=== PATIENT | male | born 1930 | race Caucasian/White ===

== ENCOUNTER 2017-11-29 12:25 | Inpatient (IN) | payer MEDICARE ==
[~2017-11-29] VITALS: Ht 175.3 cm; Wt 93.0 kg
[~2017-11-29 12:25] MED LIST: AMIO200T57 PO; APIX2.5T PO; COU1T PO; FISH12002 PO; FLO0.4C PO; FURO-150 PO; LISI-600 PO; MULT-1085 PO; ZOC40T PO
[2017-11-29] MEDS ORDERED: HYDROcodone/acetaminophen 10/325mg tab PO ONE (12:45)
[2017-11-29] MEDS ORDERED: HYDROmorphone inj. 0.5 MG/0.5 ML DISP.SYRIN IV ONE (13:25)
[2017-11-29 14:38] LABS: BASOPHILS % (AUTO) 0.3 % (0-1); EOSINOPHILS # (AUTO) 0.3 X10'3 (0-0.9); EOSINOPHILS % (AUTO) 4.7 % (0-6); HEMATOCRIT 35.8 % (42.0-52.0); HEMOGLOBIN 12.4 g/dl (14.0-17.9); LYMPHOCYTES # (AUTO) 0.6 X10'3 (1.1-4.8); LYMPHOCYTES % (AUTO) 8.3 % (21-51); MEAN CORPUSCULAR HEMOGLOBIN 33.2 PG (27.0-31.0); MEAN CORPUSCULAR HGB CONC 34.6 % (33.0-36.5); MEAN PLATELET VOLUME 8.1 FL (7.4-10.4); MONOCYTES # (AUTO) 0.6 X10'3 (0-0.9); MONOCYTES % (AUTO) 7.6 % (2-12); NEUTROPHILS # (AUTO) 5.7 X10'3 (1.8-7.7); NEUTROPHILS % (AUTO) 79.1 % (42-75); PLATELET COUNT 159 X10'3 (140-440); RED BLOOD COUNT 3.73 X10'6 (4.70-6.10); RED CELL DISTRIBUTION WIDTH 15.1 % (11.5-14.5); WHITE BLOOD COUNT 7.3 X10'3 (4.5-11.0)
[2017-11-29 14:39] LABS: ALANINE AMINOTRANSFERASE 33 U/L (12-78); ALBUMIN 3.2 G/DL (3.4-5.0); ALBUMIN/GLOBULIN RATIO 1.1 (1.1-1.5); ALKALINE PHOSPHATASE 161 IU/L (46-116); ANION GAP 11 (8-16); ASPARTATE AMINO TRANSFERASE 18 U/L (10-37); BILIRUBIN,TOTAL 0.6 MG/DL (0.1-1.0); BLOOD UREA NITROGEN 44 MG/DL (7-18); BUN/CREATININE RATIO 25.9 (5.4-32.0); CALCIUM 8.6 MG/DL (8.5-10.1); CHLORIDE 106 MMOL/L (99-107); GLUCOSE 91 MG/DL (70-104); SODIUM 142 MMOL/L (135-145); TOTAL CARBON DIOXIDE 25.3 MMOL/L (24-32); TOTAL PROTEIN 6.1 G/DL (6.4-8.2); eGFR 38 ML/MIN
[2017-11-29 16:31] LABS: CLARITY,URINE CLEAR (Clear); COLOR,URINE YELLOW (Yellow); GLUCOSE, URINE NEGATIVE (Neg); KETONES,URINE NEGATIVE (Neg); LEUKOCYTE ESTERASE ,URINE TRACE (Neg); NITRITES, URINE NEGATIVE (Neg); OCCULT BLOOD,URINE NEGATIVE (Neg); PROTEIN,URINE TRACE mg/dl (Neg); UROBILINOGEN,URINE 0.2 E.U/dL (0.2-1.0)
[2017-11-29 16:33] LABS: UA COLLECTION TYPE CLN CATCH MIDSTREAM
[2017-11-29 16:40] LABS: BACTERIA,URINE NONE SEEN /HPF (Neg); RBC,URINE NONE SEEN /HPF (0-2); SQUAMOUS EPITHELIAL CELL,UR NONE SEEN /LPF (FEW); WBC,URINE 0-4 /HPF (0-4)
[2017-11-29] MEDS ORDERED: mag hydrox/Alum hydrox/simeth 30ml oral suspension PO PRN (17:15)
[2017-11-29] MEDS ORDERED: HYDROmorphone 1 mg/ml syringe IV PRN (17:15)
[2017-11-29] MEDS ORDERED: ondansetron/PF 4mg/2ml inj IV PRN (17:15)
[2017-11-29] MEDS ORDERED: magnesium hydroxide 30ml (MOM) UD suspension PO PRN (17:15)
[2017-11-29] MEDS ORDERED: HYDROcodone/acetaminophen 10/325mg tab PO PRN (17:15)
[2017-11-29] MEDS ORDERED: acetaminophen 325mg tablet PO PRN (17:15)
[2017-11-29] MEDS ORDERED: HYDROcodone/acetaminophen 5mg/325mg tablet PO PRN (17:15)
[2017-11-29 18:19] VITALS: BP 128/82
[2017-11-29] MEDS ORDERED: heparin, porcine 5000 units/ml vial SQ SCH (20:00)
[2017-11-29] MEDS: lisinopril 20mg tablet PO SCH (21:08)
[2017-11-29] MEDS: atorvastatin 20mg tablet PO SCH (21:08)
[2017-11-29] MEDS: normal saline 1000ml 1,000 ML IV SCH (21:16)
[2017-11-29] MEDS: apixaban 2.5mg tablet PO SCH (21:17)
[2017-11-29 22:00] VITALS: BP 120/73
[2017-11-30] MEDS: normal saline 1000ml 1,000 ML IV SCH ×3 (05:07→19:26)
[2017-11-30 06:00] VITALS: BP 106/67
[2017-11-30 06:35] LABS: BASOPHILS % (AUTO) 0.9 % (0-1); EOSINOPHILS # (AUTO) 0.3 X10'3 (0-0.9); EOSINOPHILS % (AUTO) 5.2 % (0-6); HEMATOCRIT 33.3 % (42.0-52.0); HEMOGLOBIN 11.7 g/dl (14.0-17.9); LYMPHOCYTES # (AUTO) 0.4 X10'3 (1.1-4.8); LYMPHOCYTES % (AUTO) 7.2 % (21-51); MEAN CORPUSCULAR HEMOGLOBIN 33.2 PG (27.0-31.0); MEAN CORPUSCULAR HGB CONC 35.2 % (33.0-36.5); MEAN CORPUSCULAR VOLUME 94.3 FL (78-98); MEAN PLATELET VOLUME 7.7 FL (7.4-10.4); MONOCYTES # (AUTO) 0.5 X10'3 (0-0.9); MONOCYTES % (AUTO) 8.5 % (2-12); NEUTROPHILS # (AUTO) 4.5 X10'3 (1.8-7.7); NEUTROPHILS % (AUTO) 78.2 % (42-75); PLATELET COUNT 147 X10'3 (140-440); RED BLOOD COUNT 3.53 X10'6 (4.70-6.10); RED CELL DISTRIBUTION WIDTH 15.3 % (11.5-14.5); WHITE BLOOD COUNT 5.7 X10'3 (4.5-11.0)
[2017-11-30 06:37] LABS: ALBUMIN 2.9 G/DL (3.4-5.0); ANION GAP 6 (8-16); BLOOD UREA NITROGEN 38 MG/DL (7-18); BUN/CREATININE RATIO 22.4 (5.4-32.0); CALCIUM 8.5 MG/DL (8.5-10.1); CHLORIDE 109 MMOL/L (99-107); GLUCOSE 100 MG/DL (70-104); POTASSIUM 4.5 MMOL/L (3.5-5.1); SODIUM 143 MMOL/L (135-145); TOTAL CARBON DIOXIDE 28.5 MMOL/L (24-32); eGFR 38 ML/MIN
[2017-11-30] MEDS: lisinopril 20mg tablet PO SCH (07:12)
[2017-11-30] MEDS: tamsulosin 0.4mg capsule PO SCH (07:41)
[2017-11-30] MEDS: OMEGA-3/DHA/EPA/FISH OIL 1 EACH CAPSULE.DR PO SCH (07:42)
[2017-11-30] MEDS: multivitamins, therapeutics tablet PO SCH (07:42)
[2017-11-30] MEDS: furosemide 20MG tablet PO SCH (07:42)
[2017-11-30] MEDS: amiodarone 200mg tablet PO SCH (07:42)
[2017-11-30] MEDS: apixaban 2.5mg tablet PO SCH (07:42)
[2017-11-30 10:00] VITALS: BP 101/65
[2017-11-30] MEDS ORDERED: LISI10TA4 PO (10:09)
[2017-11-30] MEDS ORDERED: RIVA15TA PO (10:15)
[2017-11-30 18:34] VITALS: BP 104/64
[2017-11-30 20:50] VITALS: BP 85/62
[2017-11-30] MEDS: lisinopril 10 MG tablet PO SCH (21:00)
[2017-11-30] MEDS: atorvastatin 20mg tablet PO SCH (21:25)
[2017-11-30] MEDS: rivaroxaban 15mg tablet PO SCH (21:26)
[2017-12-01 02:21] VITALS: BP 122/72
[2017-12-01] MEDS: normal saline 1000ml 1,000 ML IV SCH (05:31)
[2017-12-01 06:00] VITALS: BP 123/77
[2017-12-01 06:38] LABS: BASOPHILS % (AUTO) 0.5 % (0-1); EOSINOPHILS # (AUTO) 0.3 X10'3 (0-0.9); EOSINOPHILS % (AUTO) 4.2 % (0-6); HEMATOCRIT 34.4 % (42.0-52.0); LYMPHOCYTES # (AUTO) 0.5 X10'3 (1.1-4.8); LYMPHOCYTES % (AUTO) 6.9 % (21-51); MEAN CORPUSCULAR HEMOGLOBIN 33.4 PG (27.0-31.0); MEAN CORPUSCULAR HGB CONC 34.8 % (33.0-36.5); MEAN CORPUSCULAR VOLUME 95.8 FL (78-98); MEAN PLATELET VOLUME 7.9 FL (7.4-10.4); MONOCYTES # (AUTO) 0.6 X10'3 (0-0.9); MONOCYTES % (AUTO) 8.3 % (2-12); NEUTROPHILS # (AUTO) 5.5 X10'3 (1.8-7.7); NEUTROPHILS % (AUTO) 80.1 % (42-75); PLATELET COUNT 139 X10'3 (140-440); RED BLOOD COUNT 3.59 X10'6 (4.70-6.10); RED CELL DISTRIBUTION WIDTH 15.3 % (11.5-14.5); WHITE BLOOD COUNT 6.8 X10'3 (4.5-11.0)
[2017-12-01 06:52] LABS: ANION GAP 8 (8-16); BLOOD UREA NITROGEN 35 MG/DL (7-18); BUN/CREATININE RATIO 21.9 (5.4-32.0); CALCIUM 8.5 MG/DL (8.5-10.1); CHLORIDE 109 MMOL/L (99-107); GLUCOSE 99 MG/DL (70-104); POTASSIUM 4.5 MMOL/L (3.5-5.1); SODIUM 144 MMOL/L (135-145); TOTAL CARBON DIOXIDE 27.2 MMOL/L (24-32); eGFR 41 ML/MIN
[2017-12-01] MEDS: amiodarone 200mg tablet PO SCH (07:30)
[2017-12-01] MEDS: OMEGA-3/DHA/EPA/FISH OIL 1 EACH CAPSULE.DR PO SCH (07:31)
[2017-12-01] MEDS: multivitamins, therapeutics tablet PO SCH (07:31)
[2017-12-01] MEDS: tamsulosin 0.4mg capsule PO SCH (07:31)
[2017-12-01] MEDS: furosemide 20MG tablet PO SCH (07:31)
[2017-12-01 10:30] VITALS: BP 118/69
[2017-12-01] MEDS ORDERED: traMADol 50MG tablet PO PRN ×2 (12:10)
[2017-12-01] MEDS: CefTRIAXone 2gm/NS 100ml IVPB 100 ML IV SCH (15:42)
[2017-12-01 18:00] VITALS: BP 111/69
[2017-12-01] MEDS: lisinopril 10 MG tablet PO SCH (21:26)
[2017-12-01] MEDS: rivaroxaban 15mg tablet PO SCH (21:26)
[2017-12-01] MEDS: atorvastatin 20mg tablet PO SCH (21:26)
[2017-12-01 22:00] VITALS: BP 124/72
[2017-12-02 06:00] VITALS: BP 122/72
[2017-12-02 06:07] LABS: BASOPHILS % (AUTO) 0.4 % (0-1); EOSINOPHILS # (AUTO) 0.3 X10'3 (0-0.9); EOSINOPHILS % (AUTO) 3.1 % (0-6); HEMATOCRIT 34.5 % (42.0-52.0); HEMOGLOBIN 11.9 g/dl (14.0-17.9); LYMPHOCYTES # (AUTO) 0.5 X10'3 (1.1-4.8); LYMPHOCYTES % (AUTO) 5.2 % (21-51); MEAN CORPUSCULAR HEMOGLOBIN 33.1 PG (27.0-31.0); MEAN CORPUSCULAR HGB CONC 34.6 % (33.0-36.5); MEAN CORPUSCULAR VOLUME 95.8 FL (78-98); MEAN PLATELET VOLUME 7.9 FL (7.4-10.4); MONOCYTES # (AUTO) 0.6 X10'3 (0-0.9); MONOCYTES % (AUTO) 7.3 % (2-12); NEUTROPHILS # (AUTO) 7.4 X10'3 (1.8-7.7); PLATELET COUNT 142 X10'3 (140-440); RED CELL DISTRIBUTION WIDTH 15.6 % (11.5-14.5); WHITE BLOOD COUNT 8.8 X10'3 (4.5-11.0)
[2017-12-02 06:37] LABS: ALBUMIN 2.9 G/DL (3.4-5.0); ANION GAP 11 (8-16); BLOOD UREA NITROGEN 32 MG/DL (7-18); CALCIUM 8.4 MG/DL (8.5-10.1); CHLORIDE 107 MMOL/L (99-107); GLUCOSE 105 MG/DL (70-104); POTASSIUM 4.4 MMOL/L (3.5-5.1); SODIUM 141 MMOL/L (135-145); TOTAL CARBON DIOXIDE 23.5 MMOL/L (24-32); eGFR 41 ML/MIN
[2017-12-02] MEDS: OMEGA-3/DHA/EPA/FISH OIL 1 EACH CAPSULE.DR PO SCH (08:36)
[2017-12-02] MEDS: amiodarone 200mg tablet PO SCH (08:36)
[2017-12-02] MEDS: multivitamins, therapeutics tablet PO SCH (08:36)
[2017-12-02] MEDS: furosemide 20MG tablet PO SCH (08:36)
[2017-12-02] MEDS: tamsulosin 0.4mg capsule PO SCH (08:36)
[2017-12-02] MEDS: CefTRIAXone 2gm/NS 100ml IVPB 100 ML IV SCH (08:36)
[2017-12-02 10:30] VITALS: BP 108/68
[2017-12-02] MEDS: normal saline 1000ml 1,000 ML IV SCH (16:18)
[2017-12-02] MEDS: lactobacillus rhamnosus 10,000 MMU CELLS/CAPSULE PO SCH (17:49)
[2017-12-02 18:00] VITALS: BP 125/76
[2017-12-02] MEDS: lisinopril 10 MG tablet PO SCH (20:37)
[2017-12-02] MEDS: rivaroxaban 15mg tablet PO SCH (20:37)
[2017-12-02] MEDS: atorvastatin 20mg tablet PO SCH (20:37)
[2017-12-02 22:00] VITALS: BP 105/65
[2017-12-03] MEDS: normal saline 1000ml 1,000 ML IV SCH (03:40)
[2017-12-03 05:36] LABS: BASOPHILS % (AUTO) 0.5 % (0-1); EOSINOPHILS # (AUTO) 0.3 X10'3 (0-0.9); EOSINOPHILS % (AUTO) 3.7 % (0-6); HEMOGLOBIN 11.8 g/dl (14.0-17.9); LYMPHOCYTES # (AUTO) 0.4 X10'3 (1.1-4.8); LYMPHOCYTES % (AUTO) 4.8 % (21-51); MEAN CORPUSCULAR HEMOGLOBIN 33.1 PG (27.0-31.0); MEAN CORPUSCULAR HGB CONC 34.7 % (33.0-36.5); MEAN CORPUSCULAR VOLUME 95.4 FL (78-98); MEAN PLATELET VOLUME 8.4 FL (7.4-10.4); MONOCYTES # (AUTO) 0.7 X10'3 (0-0.9); MONOCYTES % (AUTO) 7.8 % (2-12); NEUTROPHILS # (AUTO) 7.1 X10'3 (1.8-7.7); NEUTROPHILS % (AUTO) 83.2 % (42-75); PLATELET COUNT 147 X10'3 (140-440); RED BLOOD COUNT 3.56 X10'6 (4.70-6.10); RED CELL DISTRIBUTION WIDTH 15.3 % (11.5-14.5); WHITE BLOOD COUNT 8.5 X10'3 (4.5-11.0)
[2017-12-03 06:24] LABS: ALBUMIN 2.7 G/DL (3.4-5.0); ANION GAP 10 (8-16); BLOOD UREA NITROGEN 29 MG/DL (7-18); BUN/CREATININE RATIO 20.7 (5.4-32.0); CALCIUM 8.5 MG/DL (8.5-10.1); CHLORIDE 110 MMOL/L (99-107); GLUCOSE 100 MG/DL (70-104); POTASSIUM 4.2 MMOL/L (3.5-5.1); SODIUM 145 MMOL/L (135-145); TOTAL CARBON DIOXIDE 25.2 MMOL/L (24-32); eGFR 48 ML/MIN
[2017-12-03 06:58] VITALS: BP 123/57
[2017-12-03] MEDS: multivitamins, therapeutics tablet PO SCH (07:21)
[2017-12-03] MEDS: tamsulosin 0.4mg capsule PO SCH (07:21)
[2017-12-03] MEDS: furosemide 20MG tablet PO SCH (07:21)
[2017-12-03] MEDS: lactobacillus rhamnosus 10,000 MMU CELLS/CAPSULE PO SCH ×2 (07:21→17:47)
[2017-12-03] MEDS: OMEGA-3/DHA/EPA/FISH OIL 1 EACH CAPSULE.DR PO SCH (07:21)
[2017-12-03] MEDS: amiodarone 200mg tablet PO SCH (07:21)
[2017-12-03 10:00] VITALS: BP 105/64
[2017-12-03] MEDS ORDERED: ibuprofen tablet 400 MG TABLET PO PRN (11:45)
[2017-12-03] MEDS ORDERED: HYDR-3972 PO (13:05)
[2017-12-03 18:00] VITALS: BP 111/68
[2017-12-03] MEDS: lisinopril 10 MG tablet PO SCH (20:43)
[2017-12-03] MEDS: rivaroxaban 15mg tablet PO SCH (20:43)
[2017-12-03] MEDS: atorvastatin 20mg tablet PO SCH (20:43)
[2017-12-03 22:00] VITALS: BP 112/68
[2017-12-04 05:00] VITALS: BP 127/69
[2017-12-04 06:08] LABS: BASOPHILS % (AUTO) 0.3 % (0-1); EOSINOPHILS # (AUTO) 0.3 X10'3 (0-0.9); EOSINOPHILS % (AUTO) 4.6 % (0-6); HEMATOCRIT 34.1 % (42.0-52.0); HEMOGLOBIN 11.7 g/dl (14.0-17.9); LYMPHOCYTES # (AUTO) 0.4 X10'3 (1.1-4.8); LYMPHOCYTES % (AUTO) 5.5 % (21-51); MEAN CORPUSCULAR HEMOGLOBIN 33.1 PG (27.0-31.0); MEAN CORPUSCULAR HGB CONC 34.5 % (33.0-36.5); MEAN CORPUSCULAR VOLUME 95.9 FL (78-98); MEAN PLATELET VOLUME 8.1 FL (7.4-10.4); MONOCYTES # (AUTO) 0.6 X10'3 (0-0.9); MONOCYTES % (AUTO) 8.4 % (2-12); NEUTROPHILS % (AUTO) 81.2 % (42-75); PLATELET COUNT 150 X10'3 (140-440); RED BLOOD COUNT 3.55 X10'6 (4.70-6.10); RED CELL DISTRIBUTION WIDTH 15.6 % (11.5-14.5); WHITE BLOOD COUNT 7.3 X10'3 (4.5-11.0)
[2017-12-04 06:29] LABS: ALBUMIN 2.7 G/DL (3.4-5.0); ANION GAP 9 (8-16); BLOOD UREA NITROGEN 30 MG/DL (7-18); CALCIUM 8.3 MG/DL (8.5-10.1); CHLORIDE 108 MMOL/L (99-107); GLUCOSE 91 MG/DL (70-104); POTASSIUM 4.2 MMOL/L (3.5-5.1); SODIUM 141 MMOL/L (135-145); TOTAL CARBON DIOXIDE 24.2 MMOL/L (24-32); eGFR 44 ML/MIN
[2017-12-04] MEDS: multivitamins, therapeutics tablet PO SCH (08:07)
[2017-12-04] MEDS: tamsulosin 0.4mg capsule PO SCH (08:07)
[2017-12-04] MEDS: lactobacillus rhamnosus 10,000 MMU CELLS/CAPSULE PO SCH (08:07)
[2017-12-04] MEDS: amiodarone 200mg tablet PO SCH (08:07)
[2017-12-04] MEDS: OMEGA-3/DHA/EPA/FISH OIL 1 EACH CAPSULE.DR PO SCH (08:07)
[2017-12-04] MEDS: normal saline 1000ml 1,000 ML IV SCH (08:09)
[2017-12-04 08:10] VITALS: BP 132/74
[2017-12-04] MEDS: furosemide 20MG tablet PO SCH (08:11)
[2017-12-04] MEDS ORDERED: cefdinir 300mg capsule PO SCH (08:28)
[2017-12-04 08:54] VITALS: BP 110/65
[2017-12-04 10:00] VITALS: BP 100/57
[2018-01-04] MEDS ORDERED: BACL10TA PO (05:11)
== END 2017-12-04 11:15 | DRG 683 ==
LOC: ER 12:25 → ED HOLD 17:14 → ORTHO 4S 18:21 → OBSVTOIN 11-30 09:45
PROVIDERS: ADMIT Family Medicine; ATTEND Internal Medicine
PROC: 5A09357 Assistance with Respiratory Ventilation, Less than 24 Consecutive Hours, Continuous Positive Airway Pressure (ICD-10-PCS; principal; 2017-11-29)
DX: N17.9 Acute kidney failure, unspecified (principal); N39.0 Urinary tract infection, site not specified; I48.2 Chronic atrial fibrillation; M16.11 Unilateral primary osteoarthritis, right hip; I25.10 Atherosclerotic heart disease of native coronary artery without angina pectoris; E78.5 Hyperlipidemia, unspecified; E78.00 Pure hypercholesterolemia, unspecified; N18.9 Chronic kidney disease, unspecified; F41.9 Anxiety disorder, unspecified; I12.9 Hypertensive chronic kidney disease with stage 1 through stage 4 chronic kidney disease, or unspecified chronic kidney disease; N40.0 Benign prostatic hyperplasia without lower urinary tract symptoms; B96.4 Proteus (mirabilis) (morganii) as the cause of diseases classified elsewhere; Z96.611 Presence of right artificial shoulder joint; Z95.1 Presence of aortocoronary bypass graft; Z88.5 Allergy status to narcotic agent; Z79.01 Long term (current) use of anticoagulants; Z79.899 Other long term (current) drug therapy
CPT/HCPCS: 36415; 71045; 72192; 73502; 80048; 80053; 81001; 85025; 87070; 87077; 87088; 87186; 94660; 94760; 97116; 97161; 97530; 99285; A6257; A6449; G0378; J0696; J1170; J7030

== ENCOUNTER 2018-02-16 14:44 | Inpatient (IN) | payer MEDICARE ==
[~2018-02-16] VITALS: Ht 175.3 cm; Wt 86.3 kg
[~2018-02-16 14:44] MED LIST changes: -APIX2.5T PO; +BACL10TA PO; -COU1T PO; -LISI-600 PO; +LISI10TA4 PO; +RIVA15TA PO
[2018-02-16] MEDS ORDERED: normal saline 1000ML IV soln IVB ONE (14:55)
[2018-02-16 15:24] LABS: BASOPHILS % (AUTO) 0.1 % (0-1); EOSINOPHILS # (AUTO) 0.1 X10'3 (0-0.9); EOSINOPHILS % (AUTO) 2.5 % (0-6); HEMATOCRIT 29.7 % (42.0-52.0); LYMPHOCYTES # (AUTO) 0.3 X10'3 (1.1-4.8); LYMPHOCYTES % (AUTO) 5.9 % (21-51); MEAN CORPUSCULAR HEMOGLOBIN 32.5 PG (27.0-31.0); MEAN CORPUSCULAR HGB CONC 33.7 % (33.0-36.5); MEAN CORPUSCULAR VOLUME 96.3 FL (78-98); MEAN PLATELET VOLUME 7.8 FL (7.4-10.4); MONOCYTES # (AUTO) 0.5 X10'3 (0-0.9); MONOCYTES % (AUTO) 9.2 % (2-12); NEUTROPHILS # (AUTO) 4.4 X10'3 (1.8-7.7); NEUTROPHILS % (AUTO) 82.3 % (42-75); PLATELET COUNT 132 X10'3 (140-440); RED BLOOD COUNT 3.09 X10'6 (4.70-6.10); RED CELL DISTRIBUTION WIDTH 18.7 % (11.5-14.5); WHITE BLOOD COUNT 5.4 X10'3 (4.5-11.0)
[2018-02-16 15:35] LABS: INR 1.2 INR; PARTIAL THROMBOPLASTIN TIME 30 SECONDS (22-32)
[2018-02-16 15:43] LABS: ALANINE AMINOTRANSFERASE 31 U/L (12-78); ALBUMIN 3.2 G/DL (3.4-5.0); ALKALINE PHOSPHATASE 173 IU/L (46-116); ANION GAP 10 (8-16); ASPARTATE AMINO TRANSFERASE 18 U/L (10-37); BILIRUBIN,TOTAL 0.8 MG/DL (0.1-1.0); BLOOD UREA NITROGEN 48 MG/DL (7-18); BUN/CREATININE RATIO 25.4 (5.4-32.0); CALCIUM 8.6 MG/DL (8.5-10.1); CHLORIDE 106 MMOL/L (99-107); CREATININE 1.89 MG/DL (0.60-1.10); GLUCOSE 113 MG/DL (70-104); POTASSIUM 4.8 MMOL/L (3.5-5.1); SODIUM 141 MMOL/L (135-145); TOTAL CARBON DIOXIDE 24.9 MMOL/L (24-32); TOTAL PROTEIN 6.4 G/DL (6.4-8.2); TROPONIN I < 0.04 NG/ML (0.0-0.05); eGFR 34 ML/MIN
[2018-02-16 15:53] LABS: CLARITY,URINE Clear (Clear); COLOR,URINE Yellow (Yellow); GLUCOSE, URINE Negative (Neg); KETONES,URINE Negative (Neg); LEUKOCYTE ESTERASE ,URINE Negative (Neg); NITRITES, URINE Negative (Neg); OCCULT BLOOD,URINE Negative (Neg); PH,URINE 6.5 (4.8-8.0); PROTEIN,URINE Negative (Neg)
[2018-02-16 15:54] LABS: UA COLLECTION TYPE STRAIGHT CATH
[2018-02-16] MEDS ORDERED: TAMS0.4C32 (17:00)
[2018-02-16] MEDS ORDERED: BACL10TA2 (17:00)
[2018-02-16] MEDS ORDERED: SIMV40TA4 (17:00)
[2018-02-16] MEDS ORDERED: normal saline 1000ml 1,000 ML IV SCH (18:03)
[2018-02-16] MEDS ORDERED: magnesium hydroxide 30ml (MOM) UD suspension PO PRN (18:05)
[2018-02-16] MEDS ORDERED: mag hydrox/Alum hydrox/simeth 30ml oral suspension PO PRN (18:05)
[2018-02-16] MEDS ORDERED: ondansetron/PF 4mg/2ml inj IV PRN (18:05)
[2018-02-16] MEDS: CefTRIAXone 2gm/D5W 50ml 50 ML IV SCH (19:15)
[2018-02-16] MEDS: baclofen 10mg tablet PO SCH (20:48)
[2018-02-16] MEDS: atorvastatin 20mg tablet PO SCH (20:48)
[2018-02-16] MEDS: heparin, porcine 5000 units/ml vial SQ SCH (20:49)
[2018-02-17 06:55] LABS: BASOPHILS % (AUTO) 0.7 % (0-1); EOSINOPHILS # (AUTO) 0.2 X10'3 (0-0.9); HEMATOCRIT 31.1 % (42.0-52.0); HEMOGLOBIN 10.6 g/dl (14.0-17.9); LYMPHOCYTES # (AUTO) 0.3 X10'3 (1.1-4.8); LYMPHOCYTES % (AUTO) 5.3 % (21-51); MEAN CORPUSCULAR HGB CONC 34.1 % (33.0-36.5); MEAN CORPUSCULAR VOLUME 96.7 FL (78-98); MEAN PLATELET VOLUME 7.8 FL (7.4-10.4); MONOCYTES # (AUTO) 0.5 X10'3 (0-0.9); MONOCYTES % (AUTO) 8.2 % (2-12); NEUTROPHILS % (AUTO) 81.8 % (42-75); PLATELET COUNT 124 X10'3 (140-440); RED BLOOD COUNT 3.22 X10'6 (4.70-6.10); RED CELL DISTRIBUTION WIDTH 18.7 % (11.5-14.5); WHITE BLOOD COUNT 6.1 X10'3 (4.5-11.0)
[2018-02-17 07:18] LABS: ANION GAP 12 (8-16); BLOOD UREA NITROGEN 40 MG/DL (7-18); BUN/CREATININE RATIO 24.5 (5.4-32.0); CALCIUM 8.5 MG/DL (8.5-10.1); CHLORIDE 107 MMOL/L (99-107); CREATININE 1.63 MG/DL (0.60-1.10); GLUCOSE 103 MG/DL (70-104); POTASSIUM 4.3 MMOL/L (3.5-5.1); SODIUM 143 MMOL/L (135-145); TOTAL CARBON DIOXIDE 24.1 MMOL/L (24-32); eGFR 40 ML/MIN
[2018-02-17 08:13] LABS: TROPONIN I < 0.04 NG/ML (0.0-0.05)
[2018-02-17] MEDS ORDERED: furosemide 40mg/4ml inj IV ONE (08:20)
[2018-02-17] MEDS ORDERED: ipratropium/albuterol 3ml nebule NEB ONE (08:35)
[2018-02-17] MEDS: heparin, porcine 5000 units/ml vial SQ SCH (08:40)
[2018-02-17] MEDS: multivitamins, therapeutics tablet PO SCH (08:40)
[2018-02-17] MEDS: amiodarone 200mg tablet PO SCH (08:40)
[2018-02-17] MEDS: lisinopril 10 MG tablet PO SCH (08:40)
[2018-02-17] MEDS: tamsulosin 0.4mg capsule PO SCH (08:41)
[2018-02-17] MEDS: baclofen 10mg tablet PO SCH ×2 (08:41→20:39)
[2018-02-17] MEDS: CefTRIAXone 2gm/D5W 50ml 50 ML IV SCH (08:41)
[2018-02-17 11:01] LABS: ABG BASE EXCESS 0.4 mmol/L (-2.0-3.0); ABG HCO3 23.8 mmol/L (22.0-26.0); ABG OXYGEN SATURATION 91.4 % (95-98); ABG PCO2 (T) 33.6 mmHg (35.0-48.0); ABG PH (T) 7.466 (7.350-7.450); ABG PO2 (T) 60.1 mmHg (83-108); FCOHb 0.7 % (0.5-1.5); FLOW 4 L/min; FMetHb 0.1 % (0.3-1.12); FO2Hb 90.7 % (94-100); PATIENT TEMPERATURE 36.4; TOTAL HEMOGLOBIN 11.8 G/dl (14.0-18.0)
[2018-02-17] MEDS: ipratropium/albuterol 3ml nebule NEB SCH ×4 (11:06→23:31)
[2018-02-17] MEDS: rivaroxaban 15mg tablet PO SCH (16:49)
[2018-02-17 19:00] VITALS: BP 131/65
[2018-02-17] MEDS: atorvastatin 20mg tablet PO SCH ×2 (20:39→20:44)
[2018-02-17] MEDS: acetaminophen 325mg tablet PO PRN (20:39)
[2018-02-17] MEDS: lactobacillus rhamnosus 10,000 MMU CELLS/CAPSULE PO SCH (20:39)
[2018-02-17] MEDS: furosemide 40mg/4ml inj IV SCH (20:40)
[2018-02-17] MEDS: OMEGA-3/DHA/EPA/FISH OIL 1 EACH CAPSULE.DR PO SCH (20:45)
[2018-02-17 23:00] VITALS: BP 103/67
[2018-02-18 03:00] VITALS: BP 138/75
[2018-02-18] MEDS: ipratropium/albuterol 3ml nebule NEB SCH ×6 (03:45→23:18)
[2018-02-18 05:06] LABS: BASOPHILS % (AUTO) 0.4 % (0-1); EOSINOPHILS # (AUTO) 0.2 X10'3 (0-0.9); EOSINOPHILS % (AUTO) 3.8 % (0-6); HEMATOCRIT 31.3 % (42.0-52.0); HEMOGLOBIN 10.7 g/dl (14.0-17.9); LYMPHOCYTES # (AUTO) 0.4 X10'3 (1.1-4.8); LYMPHOCYTES % (AUTO) 8.8 % (21-51); MEAN CORPUSCULAR HEMOGLOBIN 32.5 PG (27.0-31.0); MEAN CORPUSCULAR HGB CONC 34.2 % (33.0-36.5); MEAN CORPUSCULAR VOLUME 95.1 FL (78-98); MEAN PLATELET VOLUME 8.2 FL (7.4-10.4); MONOCYTES # (AUTO) 0.5 X10'3 (0-0.9); MONOCYTES % (AUTO) 12.1 % (2-12); NEUTROPHILS # (AUTO) 3.2 X10'3 (1.8-7.7); NEUTROPHILS % (AUTO) 74.9 % (42-75); PLATELET COUNT 124 X10'3 (140-440); RED BLOOD COUNT 3.29 X10'6 (4.70-6.10); RED CELL DISTRIBUTION WIDTH 18.5 % (11.5-14.5); WHITE BLOOD COUNT 4.2 X10'3 (4.5-11.0)
[2018-02-18 05:28] LABS: ALBUMIN 3.2 G/DL (3.4-5.0); ANION GAP 12 (8-16); BLOOD UREA NITROGEN 33 MG/DL (7-18); CALCIUM 8.7 MG/DL (8.5-10.1); CHLORIDE 104 MMOL/L (99-107); CREATININE 1.57 MG/DL (0.60-1.10); GLUCOSE 110 MG/DL (70-104); POTASSIUM 3.9 MMOL/L (3.5-5.1); SODIUM 143 MMOL/L (135-145); TOTAL CARBON DIOXIDE 27.2 MMOL/L (24-32); eGFR 42 ML/MIN
[2018-02-18] MEDS: multivitamins, therapeutics tablet PO SCH ×2 (07:41→08:00)
[2018-02-18] MEDS: baclofen 10mg tablet PO SCH ×3 (07:41→20:45)
[2018-02-18] MEDS: tamsulosin 0.4mg capsule PO SCH ×2 (07:41→08:00)
[2018-02-18] MEDS: amiodarone 200mg tablet PO SCH ×2 (07:41→08:00)
[2018-02-18] MEDS: lactobacillus rhamnosus 10,000 MMU CELLS/CAPSULE PO SCH ×3 (07:41→20:45)
[2018-02-18] MEDS: furosemide 40mg/4ml inj IV SCH ×3 (07:41→20:45)
[2018-02-18] MEDS: CefTRIAXone 2gm/D5W 50ml 50 ML IV SCH ×2 (07:41→08:00)
[2018-02-18] MEDS: lisinopril 10 MG tablet PO SCH ×2 (07:42→08:00)
[2018-02-18] MEDS: OMEGA-3/DHA/EPA/FISH OIL 1 EACH CAPSULE.DR PO SCH (08:00)
[2018-02-18] MEDS: rivaroxaban 15mg tablet PO SCH (08:00)
[2018-02-18 15:55] VITALS: BP 90/52
[2018-02-18 19:00] VITALS: BP 102/55
[2018-02-18] MEDS: atorvastatin 20mg tablet PO SCH (20:45)
[2018-02-18 23:00] VITALS: BP 111/54
[2018-02-19 03:00] VITALS: BP 120/61
[2018-02-19] MEDS: ipratropium/albuterol 3ml nebule NEB SCH ×6 (03:27→23:16)
[2018-02-19 05:19] LABS: BASOPHILS % (AUTO) 0.8 % (0-1); EOSINOPHILS # (AUTO) 0.3 X10'3 (0-0.9); EOSINOPHILS % (AUTO) 7.8 % (0-6); HEMATOCRIT 29.8 % (42.0-52.0); HEMOGLOBIN 10.3 g/dl (14.0-17.9); LYMPHOCYTES # (AUTO) 0.4 X10'3 (1.1-4.8); LYMPHOCYTES % (AUTO) 9.5 % (21-51); MEAN CORPUSCULAR HEMOGLOBIN 32.5 PG (27.0-31.0); MEAN CORPUSCULAR HGB CONC 34.5 % (33.0-36.5); MEAN CORPUSCULAR VOLUME 94.2 FL (78-98); MEAN PLATELET VOLUME 8.2 FL (7.4-10.4); MONOCYTES # (AUTO) 0.5 X10'3 (0-0.9); MONOCYTES % (AUTO) 12.6 % (2-12); NEUTROPHILS # (AUTO) 2.7 X10'3 (1.8-7.7); NEUTROPHILS % (AUTO) 69.3 % (42-75); PLATELET COUNT 128 X10'3 (140-440); RED BLOOD COUNT 3.16 X10'6 (4.70-6.10); RED CELL DISTRIBUTION WIDTH 17.8 % (11.5-14.5); WHITE BLOOD COUNT 3.9 X10'3 (4.5-11.0)
[2018-02-19 05:28] LABS: ALBUMIN 2.9 G/DL (3.4-5.0); ANION GAP 11 (8-16); BLOOD UREA NITROGEN 34 MG/DL (7-18); BUN/CREATININE RATIO 21.7 (5.4-32.0); CALCIUM 8.5 MG/DL (8.5-10.1); CHLORIDE 104 MMOL/L (99-107); CREATININE 1.57 MG/DL (0.60-1.10); GLUCOSE 95 MG/DL (70-104); POTASSIUM 3.8 MMOL/L (3.5-5.1); SODIUM 142 MMOL/L (135-145); TOTAL CARBON DIOXIDE 26.7 MMOL/L (24-32); eGFR 42 ML/MIN
[2018-02-19 06:30] VITALS: BP 116/63
[2018-02-19] MEDS: tamsulosin 0.4mg capsule PO SCH (08:42)
[2018-02-19] MEDS: CefTRIAXone 2gm/D5W 50ml 50 ML IV SCH (08:42)
[2018-02-19] MEDS: furosemide 40mg/4ml inj IV SCH ×2 (08:42→20:54)
[2018-02-19] MEDS: multivitamins, therapeutics tablet PO SCH (08:43)
[2018-02-19] MEDS: amiodarone 200mg tablet PO SCH (08:43)
[2018-02-19] MEDS: OMEGA-3/DHA/EPA/FISH OIL 1 EACH CAPSULE.DR PO SCH (08:43)
[2018-02-19] MEDS: baclofen 10mg tablet PO SCH ×2 (08:43→20:54)
[2018-02-19] MEDS: lisinopril 10 MG tablet PO SCH (08:43)
[2018-02-19] MEDS: lactobacillus rhamnosus 10,000 MMU CELLS/CAPSULE PO SCH ×2 (08:43→20:54)
[2018-02-19] MEDS: rivaroxaban 15mg tablet PO SCH (08:43)
[2018-02-19 11:00] VITALS: BP 93/55
[2018-02-19 16:22] VITALS: BP 84/46
[2018-02-19 19:00] VITALS: BP 97/51
[2018-02-19] MEDS: atorvastatin 20mg tablet PO SCH (20:53)
[2018-02-19 23:00] VITALS: BP 92/43
[2018-02-20 03:00] VITALS: BP 142/81
[2018-02-20] MEDS: ipratropium/albuterol 3ml nebule NEB SCH ×3 (03:15→12:14)
[2018-02-20 05:25] LABS: BASOPHILS % (AUTO) 0.7 % (0-1); EOSINOPHILS # (AUTO) 0.3 X10'3 (0-0.9); EOSINOPHILS % (AUTO) 8.2 % (0-6); HEMATOCRIT 31.5 % (42.0-52.0); HEMOGLOBIN 10.8 g/dl (14.0-17.9); LYMPHOCYTES # (AUTO) 0.4 X10'3 (1.1-4.8); MEAN CORPUSCULAR HEMOGLOBIN 32.2 PG (27.0-31.0); MEAN CORPUSCULAR HGB CONC 34.3 % (33.0-36.5); MEAN CORPUSCULAR VOLUME 93.7 FL (78-98); MEAN PLATELET VOLUME 7.9 FL (7.4-10.4); MONOCYTES # (AUTO) 0.5 X10'3 (0-0.9); MONOCYTES % (AUTO) 12.4 % (2-12); NEUTROPHILS # (AUTO) 2.7 X10'3 (1.8-7.7); NEUTROPHILS % (AUTO) 68.7 % (42-75); PLATELET COUNT 146 X10'3 (140-440); RED BLOOD COUNT 3.36 X10'6 (4.70-6.10); RED CELL DISTRIBUTION WIDTH 18.4 % (11.5-14.5); WHITE BLOOD COUNT 3.9 X10'3 (4.5-11.0)
[2018-02-20 05:48] LABS: ALBUMIN 3.1 G/DL (3.4-5.0); ANION GAP 11 (8-16); BLOOD UREA NITROGEN 34 MG/DL (7-18); BUN/CREATININE RATIO 19.9 (5.4-32.0); CALCIUM 9.1 MG/DL (8.5-10.1); CHLORIDE 104 MMOL/L (99-107); CREATININE 1.71 MG/DL (0.60-1.10); GLUCOSE 104 MG/DL (70-104); POTASSIUM 3.9 MMOL/L (3.5-5.1); SODIUM 143 MMOL/L (135-145); TOTAL CARBON DIOXIDE 28.2 MMOL/L (24-32); eGFR 38 ML/MIN
[2018-02-20 06:30] VITALS: BP 102/56
[2018-02-20] MEDS: CefTRIAXone 2gm/D5W 50ml 50 ML IV SCH (08:19)
[2018-02-20] MEDS: tamsulosin 0.4mg capsule PO SCH (08:20)
[2018-02-20] MEDS: rivaroxaban 15mg tablet PO SCH (08:20)
[2018-02-20] MEDS: amiodarone 200mg tablet PO SCH (08:20)
[2018-02-20] MEDS: furosemide 40mg/4ml inj IV SCH (08:20)
[2018-02-20] MEDS: baclofen 10mg tablet PO SCH (08:20)
[2018-02-20] MEDS: multivitamins, therapeutics tablet PO SCH (08:20)
[2018-02-20] MEDS: lactobacillus rhamnosus 10,000 MMU CELLS/CAPSULE PO SCH (08:20)
[2018-02-20] MEDS: OMEGA-3/DHA/EPA/FISH OIL 1 EACH CAPSULE.DR PO SCH (08:20)
[2018-02-20] MEDS: lisinopril 10 MG tablet PO SCH (08:20)
[2018-02-20] MEDS: acetaminophen 325mg tablet PO PRN (09:43)
[2018-02-20 11:00] VITALS: BP 103/70
== END 2018-02-20 12:35 | DRG 291 ==
LOC: ER 14:45 → ED HOLD 18:03 → ORTHO 4S 02-17 08:08 → PCU 3S 02-17 11:28
PROVIDERS: ADMIT Family Medicine; ATTEND Family Medicine
DX: I13.0 Hypertensive heart and chronic kidney disease with heart failure and stage 1 through stage 4 chronic kidney disease, or unspecified chronic kidney disease (principal); I50.43 Acute on chronic combined systolic (congestive) and diastolic (congestive) heart failure; J96.01 Acute respiratory failure with hypoxia; N17.9 Acute kidney failure, unspecified; E86.0 Dehydration; L03.115 Cellulitis of right lower limb; I48.91 Unspecified atrial fibrillation; F03.90 Unspecified dementia, unspecified severity, without behavioral disturbance, psychotic disturbance, mood disturbance, and anxiety; E78.00 Pure hypercholesterolemia, unspecified; E78.5 Hyperlipidemia, unspecified; F41.9 Anxiety disorder, unspecified; I25.10 Atherosclerotic heart disease of native coronary artery without angina pectoris; N18.9 Chronic kidney disease, unspecified; J44.9 Chronic obstructive pulmonary disease, unspecified; M19.90 Unspecified osteoarthritis, unspecified site; N40.0 Benign prostatic hyperplasia without lower urinary tract symptoms; Z95.0 Presence of cardiac pacemaker; Z95.1 Presence of aortocoronary bypass graft; Z79.01 Long term (current) use of anticoagulants; Z79.899 Other long term (current) drug therapy; Z88.6 Allergy status to analgesic agent; Z88.5 Allergy status to narcotic agent
CPT/HCPCS: 36415; 36600; 71045; 80048; 80053; 81003; 82803; 82948; 83880; 84484; 85018; 85025; 85610; 85730; 93005; 94640; 94760; 96360; 97116; 97162; 99285; A4310; A4353; A6257; A6258; A6449; J0696; J1644; J1940; J7030